=== PATIENT | male | born 1955 | race Asian ===

== ENCOUNTER 2016-05-25 09:24 | Day surgery (SDC) | payer OTHER ==
[~2016-05-25] VITALS: Ht 172.7 cm; Wt 69.0 kg
--- NOTE | 2016-05-25 08:44 | HPN ---
Date/Time of Note Date/Time of Note DATE: 05/25/16 TIME: 08:43 Interval H&P Admission Note Pt. seen H&P reviewed: No system changes MEHDI SAUL MD May 25, 2016 08:43
[2016-05-25] MEDS ORDERED: ONDANSETRON 4 MG INJ IV PRN (09:30)
[2016-05-25] MEDS ORDERED: PROCHLORPERAZINE 10 MG INJ IV PRN (09:30)
[2016-05-25] MEDS ORDERED: OXYCODONE/ACETAMINOPHEN (5/325) TAB PO PRN (09:30)
[2016-05-25] MEDS ORDERED: METOCLOPRAMIDE 10 MG INJ IV PRN (09:30)
[2016-05-25] MEDS ORDERED: FENTAnyl 50 MCG/ML VIAL IV PRN (09:30)
[2016-05-25] MEDS ORDERED: MEPERIDINE 25 MG INJ IV PRN (09:30)
[2016-05-25] MEDS ORDERED: DIPHENHYDRAMINE 50 MG INJ IV PRN (09:30)
[2016-05-25] MEDS ORDERED: LISI40TA9 PO (10:10)
[2016-05-25] MEDS ORDERED: GLIP-95 PO (10:10)
[2016-05-25] MEDS ORDERED: METF1000 PO (10:11)
[2016-05-25] MEDS ORDERED: SIMV40TA2 PO (10:11)
[2016-05-25] MEDS ORDERED: AMLO5TAB4 PO (10:12)
[2016-05-25 10:22] VITALS: BP 130/67; PULSE 85; RESP 16; Ht 172.7 cm; Wt 69.0 kg
[2016-05-25] MEDS ORDERED: NEPAFENAC 0.1% 3 ML OPH OPER SCH (10:30)
[2016-05-25] MEDS ORDERED: MOXIFLOXACIN 0.5% 3 ML OPH OPER SCH (10:30)
[2016-05-25] MEDS ORDERED: PHENYLephrine 10% 5 ML OPH OPER SCH (10:30)
[2016-05-25] MEDS ORDERED: CYCLOPENTOLATE 2% 2 ML OPH OPER SCH (10:30)
[2016-05-25] MEDS ORDERED: EPINEPHrine 1 MG INJ ONE (10:54)
[2016-05-25] MEDS ORDERED: LIDOCAINE 1% (MPF) 5 ML VIAL INJ ONE (11:00)
[2016-05-25] MEDS ORDERED: SODIUM HYALURONATE 14 MG/ML SYG IO ONE (11:00)
[2016-05-25] MEDS ORDERED: MIDAZOLAM 1 MG/ML 2 ML INJ ONE (11:12)
[2016-05-25] MEDS ORDERED: LIDOCAINE 1% (MPF) 10 ML INJ ONE (11:16)
[2016-05-25] MEDS ORDERED: SODIUM BICARBONATE (IV ADD) 50 ML ONE (11:16)
[2016-05-25] MEDS ORDERED: CARBACHOL 0.01% 1.5 ML OPH INJ ONE (11:16)
[2016-05-25] MEDS ORDERED: BUPIVACAINE 0.75% (MPF) 10 ML INJ ONE (11:16)
[2016-05-25] MEDS ORDERED: FENTAnyl 50 MCG/ML VIAL ONE (11:21)
[2016-05-25] MEDS ORDERED: ONDANSETRON 4 MG INJ ONE (11:23)
[2016-05-25] MEDS ORDERED: TIMOLOL 0.5% 5 ML OPH LEFT EYE ONE (11:25)
[2016-05-25 11:59] VITALS: BP 104/62; PULSE 78; RESP 12
[2016-05-25 12:02] VITALS: BP 92/60; PULSE 72; RESP 12
[2016-05-25 12:07] VITALS: BP 91/58; PULSE 74; RESP 14
[2016-05-25 12:17] VITALS: BP 99/59; PULSE 67; RESP 18
--- NOTE | 2016-05-25 19:27 | OPR ---
DATE OF OPERATION: 05/25/2016 SURGEON: Mehdi Grover MD VEST FRONT PRESSER: None. PREOPERATIVE DIAGNOSIS: Senile nuclear sclerotic cataract, left eye. POSTOPERATIVE DIAGNOSIS: Senile nuclear sclerotic cataract, left eye. OPERATION: Kelman phacoemulsification with implantation of intraocular lens, left eye. PROCEDURE: Following standard preparation and draping of the patient, an aspirating lid speculum wa s placed for immobilization of the lids. A Superblade incision was made for access into the anterior chamber. Approximately 0.5 ml of 1% unpreserved Xylocaine was instilled into the anterior chamber, and after approximately 15 seconds, this was replaced with Viscoat. A clear corneal incision was then made using the 3.2 mm keratome, following which an anterior circul ar capsulorrhexis was made. The major portion of the lens cortex and nucleus was then dislocated fro m the capsular bag using hydrodissection. The KPE tip was introduced into the eye, and controlling m ovements of the lens with a two-handed technique, the major portion of the lens cortex and nucleus w as removed, maintaining the lens in the plane of the iris. The remaining cortical material was remov ed via the irrigating-aspirating instrument. The capsular bag and the anterior chamber were re-forme d using Viscoat. The proper power lens was then placed within the capsular bag. The viscoelastic was then removed from the eye and the eye re-formed with balanced salt solution. One 10-0 Vicryl suture was then used to ensure closure of the corneal incision. The eye was re-forme d to normal pressure using balanced salt solution. The eye and cul-de-sacs were now simply flooded w ith 5% Betadine solution. One drop of Vigamox and one drop of Betagan solution were instilled into the eye. A light pressure d ressing was applied, and the patient was returned to the recovery room in satisfactory condition. Dictated By: MEHDI NICHOLS/AMELIA Conf#: [id number] DID#: [id number]
== END 2016-05-25 13:40 | disposition home or self-care (01) ==
LOC: SDS 09:24
PROVIDERS: ATTEND Ophthalmology
DX: H25.12 Age-related nuclear cataract, left eye (principal); I10 Essential (primary) hypertension; E11.9 Type 2 diabetes mellitus without complications; E78.5 Hyperlipidemia, unspecified
CPT/HCPCS: 66984; 82962; J0171; J2250; J2405; J3010; V2632; Z7512; Z7610

== ENCOUNTER 2017-02-10 06:54 | Day surgery (SDC) | END 2017-02-10 14:02 | disposition home or self-care (01) ==